=== PATIENT | female | born 1995 | race Caucasian/White ===

== ENCOUNTER → 2017-10-30 | Outpatient (CLI) | payer OTHER ==
[~2017-10-30] MED LIST: PRENTAB26 PO
== END | disposition home or self-care (01) ==
LOC: C.PAPS 12:16
PROVIDERS: ATTEND Obstetrics & Gynecology
DX: Z12.4 Encounter for screening for malignant neoplasm of cervix (principal)

== ENCOUNTER → 2017-10-30 | Outpatient (CLI) | payer OTHER ==
[2017-10-30 09:37] LABS: BASO % 0.2 %; BASO ABS # 0.01 K/uL (0-0.2); EOS % 1.5 %; HEMATOCRIT 39.8 % (37-47); HEMOGLOBIN 13.7 g/dL (12.0-16.0); IG# 0.02 K/uL (0.00-0.02); LYMPH % 14.6 %; LYMPH ABS # 0.97 K/uL (1.2-3.4); MEAN CELL VOLUME 88.4 fL (80-100); MEAN CORPUSCULAR HEMOGLOBIN 30.4 pg (25-34); MEAN CORPUSCULAR HGB CONC 34.4 g/dl (32-36); MONO % 6.8 %; MONO ABS # 0.45 K/uL (0.11-0.59); NEUT % 76.6 %; NEUT ABS # 5.09 K/uL (1.4-6.5); PLATELET COUNT 194 K/uL (130-400); RED CELL DISTRIBUTION WIDTH CV 12.9 % (11.5-14.5); RED CELL DISTRIBUTION WIDTH SD 41.7 fL (36.4-46.3); WHITE BLOOD COUNT 6.64 K/uL (4.8-10.8)
== END | disposition home or self-care (01) ==
LOC: C.LAB1850 08:53
PROVIDERS: ATTEND Obstetrics & Gynecology
DX: Z34.81 Encounter for supervision of other normal pregnancy, first trimester (principal)

== ENCOUNTER → 2017-12-17 | Outpatient (CLI) | payer OTHER | END | disposition home or self-care (01) | LOC: C.LAB1850 08:37 | PROVIDERS: ATTEND Obstetrics & Gynecology | DX: Z34.82 Encounter for supervision of other normal pregnancy, second trimester (principal) ==

== ENCOUNTER → 2018-03-14 | Outpatient (CLI) | payer OTHER | END | disposition home or self-care (01) | LOC: C.LABSPEC 16:55 | PROVIDERS: ATTEND Obstetrics & Gynecology | DX: Z34.83 Encounter for supervision of other normal pregnancy, third trimester (principal) ==

== ENCOUNTER → 2018-03-14 | Outpatient (CLI) | payer OTHER ==
[2018-03-14 16:31] LABS: HEMOGLOBIN 11.7 g/dL (12.0-16.0)
== END | disposition home or self-care (01) ==
LOC: C.LAB1850 15:07
PROVIDERS: ATTEND Obstetrics & Gynecology
DX: Z34.83 Encounter for supervision of other normal pregnancy, third trimester (principal)

== ENCOUNTER 2020-10-31 11:04 | Inpatient (IN) ==
[2020-10-31] MEDS ORDERED: OXYTOCIN 30 UNITS/500 ML BAG IV PRN ×2 (11:42→14:57)
[2020-10-31 12:08] LABS: Hematocrit (blood only) 40.5 % (37-47); Hemoglobin 14.3 g/dL (12.0-16.0); Mean Corpuscular Hemoglobin 32.6 pg (25-34); Mean Corpuscular Hgb Conc 35.3 g/dL (32-36); Mean Corpuscular Volume 92.5 fL (80-100); Mean Platelet Volume 10.2 fL (7.4-10.4); Platelet Count 157 K/uL (130-400); RDW Coefficient of Variation 12.5 % (11.5-14.5); RDW Standard Deviation 42.3 fL (36.4-46.3); Red Blood Count 4.38 M/uL (4.2-5.4); White Blood Count 9.19 K/uL (4.8-10.8)
[2020-10-31] MEDS: LACTATED RINGER'S 1,000 ML IV PRN ×2 (12:19→14:04)
[2020-10-31 12:39] LABS: Alanine Aminotransferase 23 U/L (12-78); Albumin Level 3.1 gm/dl (3.4-5.0); Aspartate Aminotransferase 11 U/L (15-37); BUN Creatinine Ratio 18.3 (10-20); Bilirubin Direct < 0.1 mg/dl (0-0.2); Blood Urea Nitrogen 8 mg/dl (7-18); Calcium 8.2 mg/dl (8.5-10.1); Carbon Dioxide 24 mmol/L (21-32); Chloride 109 mmol/L (98-107); Creatinine Clr Calc Pharmacy 204.2 ml/min; Est GFR (African American) > 150.0; Est GFR (Non-African American) 141.4; Glucose 71 mg/dl (70-99); Potassium 3.8 mmol/L (3.5-5.1); Sodium 137 mmol/L (136-145)
[2020-10-31 12:42] LABS: Albumin Globulin Ratio 0.9 (0.9-2); Alkaline Phosphatase 110 U/L (45-117); Bilirubin,Total 0.4 mg/dl (0.2-1); Globulin 3.6 gm/dl (2.5-4.0); Total Protein 6.7 gm/dl (6.4-8.2)
[2020-10-31] MEDS ORDERED: ONDANSETRON INJ 2 MG/ML 2 ML VIAL IV PRN (13:24)
[2020-10-31] MEDS ORDERED: fentaNYL 2MCG/ML ROPIVACAINE 1.25MG/ML 100 ML BAG EPI PRN (13:24)
[2020-10-31] MEDS ORDERED: NALOXONE HCL 1 MG in SODIUM CHLORIDE 0.9% 1000ML 1,000 ML IV PRN (13:24)
[2020-10-31] MEDS ORDERED: diphenhydrAMINE 50 MG/ML VIAL IV PRN (13:24)
[2020-10-31] MEDS ORDERED: ePHEDrine sulfate 50 MG/ML AMP IV PRN (13:24)
[2020-10-31] MEDS ORDERED: NALOXONE HCL 0.4 MG/1 ML VIAL/CARP IV PRN (13:24)
--- NOTE | 2020-10-31 13:26 | Anesthesiology Consultation ---
Date of Service October 31, 2020 Assessment & Plan (1) Encounter for pre-operative examination: Chart Review Chart Review: Patient NOT seen in Pre Admission Testing and Acceptable Risk for Labor Epidural Consults Requested none History Height/Weight Height: 5 ft 5 in Weight: 76.204 kg Allergies Allergy/AdvReac Type Severity Reaction Status Date / Time grass pollen-perennial rye, Allergy Mild itchy eyes Verified 10/31/20 10:30 standar pollen extracts Allergy Mild itchy eyes Verified 10/31/20 10:30 ragweed pollen Allergy Mild itchy eyes Verified 10/31/20 10:30 Medications Home Medications Medication Instructions Recorded Confirmed Last Taken prenat.vits,ron,[id number] 1 tab PO DAILY 03/23/20 10/31/20 Unknown Active Medications Generic Name Dose Route Start Last Admin Trade Name Freq PRN Reason Stop Dose Admin Lactated Ringer's 1,000 mls @ 125 mls/hr 10/31/20 11:42 10/31/20 13:22 Lr IV 11/02/20 11:41 999 mls/hr .Q8H PRN Infusion L&D Protocol Protocol Past Medical History Medical History Encounter for induction of labor 22 y/o, with EDC of 06/04/18 via U/S, @ 39.5 weeks gestation, Rh (- ), GBS (-), barrios balloon inserted night prior to vaginal delivery and removed in the morning. Normal labor Normal vaginal delivery Right inguinal hernia plan to repair by general surgery, s/p delivery. Currently being followed by Vaginal delivery Varicella vaccine Exercise / Class Metabolic Activity II 4-5 Yardwork/Stairs/Walk up hill Past Family History Family History Other Coronary heart disease Diabetes Hypertension Past Surgical History Surgical History History of ear surgery History of placement of ear tubes [place] teeth extracted Past Anesthesia History No Hx of Anesthesia Complications and No Family Hx of Anesthesia Complications History of PONV No Hx of PONV and No Hx of Motion Sickness Social History Smoking Status: Never smoker Do You Dip or Chew Tobacco: No Hx Alcohol Use: No Hx Substance Use: No Physical Exam Vital Signs Last Vital Signs Temp 36.7 C 10/31/20 11:23 Pulse 86 10/31/20 13:24 Resp 18 10/31/20 12:30 BP 116/73 10/31/20 11:57 Pulse Ox 93 10/31/20 13:24 Testing Laboratory Results 10/31/20 11:52 10/31/20 11:52
[2020-10-31] MEDS ORDERED: SODIUM CHLORIDE 0.9% INJ 10 ML VIAL ONE (13:28)
[2020-10-31] MEDS ORDERED: ePHEDrine sulfate 50 MG/ML AMP ONE (13:28)
[2020-10-31] MEDS ORDERED: fentaNYL citrate 100 MCG/2 ML VIAL ONE (13:29)
[2020-10-31] MEDS ORDERED: BUPIVACAINE 0.25% 30 ML VIAL ONE (13:29)
[2020-10-31] MEDS ORDERED: fentaNYL 2MCG/ML ROPIVACAINE 1.25MG/ML 100 ML BAG EPI ONE (13:29)
--- NOTE | 2020-10-31 13:43 | History & Physical Report ---
Date of Service October 31, 2020 Assessment & Plan (1) Active labor at term: (2) Need for rhogam due to Rh negative mother: admit, iv, labs. cmp done due to elevated bp on arrival but bps since are normal. consult anesth for epidural. then will arom when comfortable. Admission and Anticipated Discharge Date Admission Date: October 31, 2020 History of Present Illness Chief Complaint: regular ctx Primary Care Provider: NO PCP 25yo at 39+wks ega with edc 11/06/20 presents to L&D with above cc. Contractions getting closer and stronger, was 3cm in office. Wants epidural. PNC c/b 1. RH neg, had rhogam, eval pp PNL rh neg, ri, gbs neg. OBH: x 2 GYNH: nl paps, no stds. Allergies Allergy/AdvReac Type Severity Reaction Status Date / Time grass pollen-perennial rye, Allergy Mild itchy eyes Verified 10/31/20 10:30 standar pollen extracts Allergy Mild itchy eyes Verified 10/31/20 10:30 ragweed pollen Allergy Mild itchy eyes Verified 10/31/20 10:30 Home Medications Medication Instructions Recorded Confirmed Type prenat.vits,ron,[id number] 1 tab PO DAILY 03/23/20 10/31/20 History Patient History Medical History Encounter for induction of labor 22 y/o, with EDC of 06/04/18 via U/S, @ 39.5 weeks gestation, Rh (- ), GBS (-), barrios balloon inserted night prior to vaginal delivery and removed in the morning. Normal labor Normal vaginal delivery Right inguinal hernia plan to repair by general surgery, s/p delivery. Currently being followed by Vaginal delivery Varicella vaccine Surgical History History of ear surgery History of placement of ear tubes [place] teeth extracted Family History Other Coronary heart disease Diabetes Hypertension Social History (Updated 03/23/20 @ 15:08 by Monica Magana) Smoking Status: Never smoker Second Hand Exposure: No; Do You Dip or Chew Tobacco: No; Hx Alcohol Use: No Hx Substance Use: No Preferred Language: Latvian Communication Ability: Effective [employer] Worker Required: No Beliefs That Will Affect Care: None marital status: marital status details: Ivan Talbot 23 Current Living Situation: Spouse Current Living Situation Comment: lives with spouse and children, no pets current occupational status: employed 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 Other Information That Helps Us Care for You: No Feels Safe at Home: Yes Safety Concerns: Feels Safe At This Time Assistive Devices: None Physical Exam Constitutional: WD/WN, vitals as above Neurologic: grossly normal Psychiatric: A+Ox3, euthymic affect Genitourinary: Manual OB Exam: + cervical dilation (per office) 3 cm OB Exam Monitor Tracing: + external FHT monitor used (130 mod variability), + external uterine monitor used (q2-4), + category I and + normal FHT variability Results & Data ([facility]) Vital Signs (Past 12 Hours) Vital Signs Temp Pulse Resp BP Pulse Ox 10/31/20 13:38 97 H 97 10/31/20 13:33 85 96 10/31/20 13:29 81 81 L 10/31/20 13:28 81 98 10/31/20 13:24 86 93 10/31/20 13:23 82 96 10/31/20 13:18 85 94 10/31/20 12:30 18 10/31/20 12:00 18 10/31/20 11:57 96 H 116/73 10/31/20 11:42 99 H 127/78 10/31/20 11:30 18 10/31/20 11:23 98.1 F 18 10/31/20 11:15 98.1 F 18 10/31/20 11:13 93 H 133/94 Coding Level of Care Code None Diagnoses Active labor at term Need for rhogam due to Rh negative mother Z29.13
[2020-10-31] MEDS ORDERED: LIDOCAINE/EPINEPHRINE 2% 1:200,000 20 ML SDV ONE (14:20)
--- NOTE | 2020-10-31 14:28 | Labor Progress Brief Note ---
Date of Service October 31, 2020 Subjective Reason For Note: Inadequate Pain Control had epidural placed but still with pain with ctx, anterior suprapubic. not rectal pressure. Assessment & Plan (1) Active labor at term: (2) Need for rhogam due to Rh negative mother: anesthesia trying to get pt more comfortable. fhts categ 1. anticip 2nd stage soon. Admission and Anticipated Discharge Date Admission Date: October 31, 2020 Physical Exam Genitourinary: Manual OB Exam: + cervical dilation 9 cm, + cervical effacement 100%, + station + 1 and + amniotic fluid (SROM ) clear OB Exam Monitor Tracing: + external FHT monitor used (120 baseline), + external uterine monitor used (q2), + category I and + normal FHT variability Results & Data ([facility]) Vital Signs (Past 12 Hours) Vital Signs Temp Pulse Resp BP Pulse Ox 10/31/20 14:24 86 119/63 10/31/20 14:22 85 125/60 10/31/20 14:21 93 H 95 10/31/20 14:20 90 131/60 87 L 10/31/20 14:18 87 117/55 L 10/31/20 14:16 91 H 100 10/31/20 14:14 85 126/80 10/31/20 14:13 95 H 83 L 10/31/20 14:12 84 125/80 10/31/20 14:10 85 136/95 10/31/20 14:09 94 H 98 10/31/20 14:08 88 130/84 82 L 10/31/20 14:06 84 140/90 10/31/20 14:04 93 H 126/76 10/31/20 14:03 89 87 L 10/31/20 14:02 93 H 135/83 10/31/20 14:00 20 10/31/20 13:58 89 137/86 100 10/31/20 13:56 85 130/82 10/31/20 13:53 83 98 10/31/20 13:52 76 129/80 10/31/20 13:50 80 123/79 10/31/20 13:48 87 129/80 98 10/31/20 13:46 81 126/76 10/31/20 13:44 83 125/78 10/31/20 13:43 91 H 129/78 96 10/31/20 13:42 84 85 L 10/31/20 13:40 89 127/83 10/31/20 13:38 97 H 97 10/31/20 13:33 85 96 10/31/20 13:29 81 81 L 10/31/20 13:28 81 98 10/31/20 13:24 86 93 10/31/20 13:23 82 96 10/31/20 13:18 85 94 10/31/20 12:30 18 10/31/20 12:00 18 10/31/20 11:57 96 H 116/73 10/31/20 11:42 99 H 127/78 10/31/20 11:30 18 10/31/20 11:23 98.1 F 18 10/31/20 11:15 98.1 F 18 10/31/20 11:13 93 H 133/94 Coding Level of Care Code None Diagnoses Active labor at term Need for rhogam due to Rh negative mother Z29.13
--- NOTE | 2020-10-31 14:55 | Delivery Summary ---
Vaginal Delivery Summary Date of Service October 31, 2020 Vaginal Delivery Summary The patient dilated to complete and pushed to deliver a viable male Apgars 9 and 9 via over intact perineum. Mouth and nose bulb suctioned at perineum. Shoulders and body delivered with ease. Infant was vigorous and crying at . Cord clamped at 30 seconds of life and infant to maternal abdomen where the cord was then doubly clamped and cut. Placenta delivered spontaneously and intact, three-vessel cord. Hemostasis achieved with dilute pitocin and uterine massage and drainage of the bladder for approximately 75 cc under sterile conditions. Cervix and sulci intact. EBL 300 cc. Mother and baby stable recovery. [facility] Vaginal Delivery Charge Delivery Type Details:
[2020-10-31] MEDS ORDERED: ACETAMINOPHEN 325 MG TAB PO PRN (14:57)
[2020-10-31] MEDS ORDERED: oxyCODONE/ACETAMINOPHEN 5mg/325mg TAB PO PRN (14:57)
[2020-10-31] MEDS ORDERED: OXYTOCIN 20 UNITS in LACTATED RINGER'S 1,000 ML IV SCH (15:00)
[2020-10-31] MEDS ORDERED: BENZOCAINE 20% AER SPR 82.5 GM CAN EXT PRN (15:14)
[2020-10-31] MEDS ORDERED: SUPERCREAM 0.870% 15 GM JAR EXT PRN (15:14)
[2020-10-31] MEDS ORDERED: DIPHTHERIA/TETANUS/PERTUSSIS 0.5 ML SYR/VIAL IM ONE (15:14)
[2020-10-31] MEDS ORDERED: HYDROCORTISONE ACETATE 25 MG SUPP PR PRN (15:14)
[2020-10-31] MEDS: IBUPROFEN 600 MG TAB PO PRN ×2 (15:40→19:25)
--- NOTE | 2020-10-31 17:16 | Anesthesiology Progress Note ---
Date of Service October 31, 2020 Anesthesia Post Procedure Vital Signs Vital Signs: Temp Pulse Resp BP Pulse Ox 10/31/20 17:05 81 117/56 L 10/31/20 16:50 81 131/77 10/31/20 16:35 76 117/61 10/31/20 16:20 81 125/60 10/31/20 16:05 73 123/62 10/31/20 15:50 78 16 121/60 10/31/20 15:35 89 18 124/67 10/31/20 15:20 82 16 124/60 10/31/20 15:05 85 16 121/65 10/31/20 14:50 36.8 C 20 10/31/20 14:48 101 H 127/65 10/31/20 14:46 112 H 98 10/31/20 14:42 83 131/58 L 10/31/20 14:41 102 H 99 10/31/20 14:40 90 136/65 10/31/20 14:38 90 127/62 86 L 10/31/20 14:36 79 126/74 98 10/31/20 14:34 81 127/68 10/31/20 14:32 83 133/75 10/31/20 14:31 86 100 10/31/20 14:30 92 H 16 131/75 10/31/20 14:28 86 132/83 88 L 10/31/20 14:26 82 99 10/31/20 14:24 86 119/63 10/31/20 14:22 85 125/60 10/31/20 14:21 93 H 95 10/31/20 14:20 90 131/60 87 L 10/31/20 14:18 87 117/55 L 10/31/20 14:16 91 H 100 10/31/20 14:14 85 126/80 10/31/20 14:13 95 H 83 L 10/31/20 14:12 84 125/80 10/31/20 14:10 85 136/95 10/31/20 14:09 94 H 98 10/31/20 14:08 88 130/84 82 L 10/31/20 14:06 84 140/90 10/31/20 14:04 93 H 126/76 10/31/20 14:03 89 87 L 10/31/20 14:02 93 H 135/83 10/31/20 14:00 20 10/31/20 13:58 89 137/86 100 10/31/20 13:56 85 130/82 10/31/20 13:53 83 98 10/31/20 13:52 76 129/80 10/31/20 13:50 80 123/79 10/31/20 13:48 87 129/80 98 10/31/20 13:46 81 126/76 10/31/20 13:44 83 125/78 10/31/20 13:43 91 H 129/78 96 10/31/20 13:42 84 85 L 10/31/20 13:40 89 127/83 10/31/20 13:38 97 H 97 10/31/20 13:33 85 96 10/31/20 13:30 20 10/31/20 13:29 81 81 L 10/31/20 13:28 81 98 10/31/20 13:24 86 93 10/31/20 13:23 82 96 10/31/20 13:18 85 94 10/31/20 12:30 18 10/31/20 12:00 18 10/31/20 11:57 96 H 116/73 10/31/20 11:42 99 H 127/78 10/31/20 11:30 18 10/31/20 11:23 36.7 C 18 10/31/20 11:15 36.7 C 18 10/31/20 11:13 93 H 133/94 Pain Intensity Bilateral Lower Abdomen: Pain Intensity: 1 Transfer of Care Handoff Completed per policy Notes Mental Status: alert / awake / arousable and participated in evaluation Patient Amnestic to Procedure: No Nausea / Vomiting: adequately controlled Pain: adequately controlled Airway Patency, RR, SpO2: stable & adequate BP & HR: stable & adequate Hydration State: stable & adequate Neuraxial Anesthesia: was administered and sensory block is resolving Anesthetic Complications: no major complications apparent and Pt Satisfied with anesthetic care
[2020-10-31] MEDS: DOCUSATE SODIUM 100 MG CAP PO SCH (21:47)
[2020-11-01] MEDS: IBUPROFEN 600 MG TAB PO PRN ×3 (00:52→09:04)
--- NOTE | 2020-11-01 06:37 | Obstetrical Progress Note ---
Date of Service <Bhargav Arias MD - Last Filed: 11/01/20 07:06> November 01, 2020 Assessment & Plan <Bhargav Arias MD - Last Filed: 11/01/20 07:06> (1) : - PNL: Rh neg (rhogam prior to DC), RI, GBS neg, COVID neg - Feels well today. Eating well, voiding well, ambulating well - Pain well controlled with ibuprofen 600mg Q4H PRN - Routine care -- OOB, ambulation, diet progression as tolerated - After discharge will have 6 week follow-up with Dr. Root (2) Need for rhogam due to Rh negative mother: Subjective <Bhargav Arias MD - Last Filed: 11/01/20 07:06> Jing is a 25 y/o female who is PPD #1 following at 39+ weeks. She reports feeling well overall this morning. Light abdominal cramping and 1/10 pain well managed on analgesics. Voiding well. Tolerating meals overnight without difficulty. Patient has been able to ambulate some. Is passing gas, no bowel movement. Has persistent lochia with some improvement this morning. Currently . Review of Systems Denies fever or chills. Denies shortness of breath or cough. Denies chest pain. Denies breast pain. Denies dysuria. Denies leg pain or leg swelling. Denies headache or changes in vision. Physical Exam <Bhargav Arias MD - Last Filed: 11/01/20 07:06> General: Alert, oriented. No acute distress. Cardiac: Regular rate and rhythm. No murmurs. Respiratory: Clear to auscultation bilaterally a/p, no wheezes/rales/rhonchi. No increased work of breathing. Symmetrical chest rise. No respiratory distress. Abdomen: Soft, nontender, nondistended. Bowel sounds present. Uterus: Uterine fundus firm, palpable 1 cm below umbilicus. Lower Extremities: No lower extremity edema or swelling. No deep calf pain. Martha's negative bilaterally. Results & Data ([facility]) <Bhargav Arias MD - Last Filed: 11/01/20 07:06> Vital Signs (Past 12 Hours) Vital Signs Temp Pulse Pulse Pulse Resp BP BP 11/01/20 04:55 36.7 C 80 18 127/79 11/01/20 00:30 36.6 C 82 18 123/75 10/31/20 20:40 36.8 C 90 18 120/75 10/31/20 19:10 37.0 C 90 18 132/70 Pulse Ox 11/01/20 04:55 11/01/20 00:30 10/31/20 20:40 97 10/31/20 19:10 <Margy Root MD, FACOG - Last Filed: 11/01/20 07:08> Co-Signing Physician Notes Resident Physician Supervision Note: I was present with Dr. Bell during the history and exam. I discussed the case with the resident and agree with the findings and plan as documented in the note. Any exceptions or clarifications are listed here: doing well, eating, voiding, ambulating, due to get rhophylac. ff 3 down nt, nt calves. would like d/c home later today. instructions reviewed. f/u 6 wk pp check. Documented By: Margy Root MD, FACOG Resident Activity Tracking <Bhargav Arias MD - Last Filed: 11/01/20 07:06> Resident Involvement: Resident Care Provided Care Provided: OB Delivery
[2020-11-01] MEDS: DOCUSATE SODIUM 100 MG CAP PO SCH (08:19)
== END 2020-11-01 15:22 | disposition home or self-care (01) | DRG 807 ==
LOC: OPB 11:04 → 4S1 11:05 → 4S2 20:14